=== PATIENT | male | born 2000 | race Two or more races ===

== ENCOUNTER 2024-04-10 16:00 | Emergency (ER) | payer OTHER ==
[~2024-04-10] VITALS: Ht 172.7 cm; Wt 68.0 kg
[2024-04-10] MEDS ORDERED: 0.9 % SODIUM CHLORIDE 1,000 ML IV ONE (18:00)
[2024-04-10] MEDS ORDERED: PROPOFOL 10,000 MCG/ML VIAL IV ONE (18:15)
== END 2024-04-10 19:09 | disposition home or self-care (01) ==
LOC: ER 16:02
DX: S43.016A Anterior dislocation of unspecified humerus, initial encounter (principal); X58.XXXA Exposure to other specified factors, initial encounter; Y93.18 Activity, surfing, windsurfing and boogie boarding; Y92.89 Other specified places as the place of occurrence of the external cause; Y99.8 Other external cause status
CPT/HCPCS: 23650; 73030; 73060; 96365; 99283; J3490; J7030